=== PATIENT | female | born 1960 | race Caucasian/White ===

== ENCOUNTER → 2022-10-18 | Outpatient (CLI) | payer MEDICARE, OTHER ==
[~2022-10-18] MED LIST: ALBU90OI INH; AMOX500 PO; CLON1 PO; SERT100 PO
[2022-10-18 16:06] LABS: BASOPHILS ABSOLUTE AUTO 0.05 K/mm3 (0.00-0.23); BASOPHILS PERCENT AUTO 0 % (0-2); EOSINOPHILS ABSOLUTE AUTO 0.49 K/mm3 (0.00-0.68); EOSINOPHILS PERCENT AUTO 4 % (0-6); Hematocrit 39.1 % (33.0-51.0); IMMATURE GRAN ABSOLUTE AUTO 0.09 K/mm3 (0.00-0.10); IMMATURE GRAN PERCENT AUTO 1 % (0-1); LYMPHOCYTES ABSOLUTE AUTO 3.25 K/mm3 (0.84-5.20); LYMPHOCYTES PERCENT AUTO 29 % (21-46); MONOCYTES ABSOLUTE AUTO 0.48 K/mm3 (0.16-1.47); MONOCYTES PERCENT AUTO 4 % (4-13); Mean Corpuscular HGB 28.5 pg (26.0-34.0); Mean Corpuscular HGB Conc 33.2 g/dL (31.5-36.5); Mean Corpuscular Volume 86 fL (80-100); Mean Platelet Volume 9.4 fL (9.1-12.4); NEUTROPHILS ABSOLUTE AUTO 6.86 K/mm3 (1.96-9.15); NEUTROPHILS PERCENT AUTO 61 % (41-73); Platelet Count 298 K/mm3 (150-400); RDW Coefficient Variation 14.5 % (11.7-14.2); RDW Standard Deviation 44.9 fL (35.1-46.3); Red Blood Cell Count 4.56 M/mm3 (3.80-5.20); White Blood Cell Count 11.22 K/mm3 (4.00-11.30)
[2022-10-18 16:59] LABS: Free Thyroxine 0.8 ng/dL (0.70-1.60)
[2022-10-18 17:04] LABS: Albumin, Blood 3.8 g/dL (3.4-5.0); Albumin/Globulin Ratio 0.9 (0.8-1.8); Bilirubin, Total 0.2 mg/dL (0.1-1.0); Bun/Creatinine Ratio 14.9 (12.0-20.0); Calcium, Blood 8.7 mg/dL (8.5-10.1); Creatinine, Blood 0.87 mg/dL (0.40-1.00); Globulin, Blood 4.1 g/dL (2.2-4.0); Potassium, Blood 4.1 mmol/L (3.5-5.5); Thyroid Stimulating Hormone 2.55 uIU/mL (0.360-4.800); Total Protein, Blood 7.9 g/dL (6.4-8.2)
== END | disposition home or self-care (01) ==
LOC: LAB SHORT 15:58
PROVIDERS: Physician Assistant
DX: H53.2 Diplopia (principal); R47.81 Slurred speech; R53.83 Other fatigue
CPT/HCPCS: 80053; 84439; 84443; 85025

== ENCOUNTER → 2023-07-30 | Outpatient (CLI) | payer MEDICARE, OTHER | LOC: LAB 15:54 → LAB SHORT 15:54 | DX: R82.90 Unspecified abnormal findings in urine (principal) | CPT/HCPCS: 87086 ==

== ENCOUNTER → 2023-09-10 | Outpatient (CLI) | payer MEDICARE, OTHER | END | disposition home or self-care (01) | LOC: LAB 15:56 → LAB SHORT 15:56 | DX: R30.0 Dysuria (principal) | CPT/HCPCS: 87086 ==

== ENCOUNTER → 2023-11-20 | Outpatient (CLI) | payer MEDICARE, OTHER ==
[2023-11-20 20:08] LABS: Bacterial Vaginosis PCR Negative (NEGATIVE); Candida glabrata-krusei, PCR NOT DETECTED (NOT DETECT)
[2023-11-20 21:00] LABS: Candida Group, PCR DETECTED (NOT DETECT)
== END ==
LOC: LAB 14:08 → LAB SHORT 14:08
PROVIDERS: Nurse Practitioner Family
DX: B37.31 Acute candidiasis of vulva and vagina (principal)
CPT/HCPCS: 87481; 87661; 87801

== ENCOUNTER → 2024-01-08 | Outpatient (CLI) | payer MEDICARE, OTHER ==
[2024-01-08 15:54] LABS: Bacterial Vaginosis PCR Negative (NEGATIVE); Candida glabrata-krusei, PCR NOT DETECTED (NOT DETECT)
[2024-01-08 15:55] LABS: Candida Group, PCR DETECTED (NOT DETECT)
== END | disposition home or self-care (01) ==
LOC: LAB 11:02 → LAB SHORT 11:02
PROVIDERS: Nurse Practitioner Family
DX: R10.84 Generalized abdominal pain (principal)
CPT/HCPCS: 87481; 87661; 87801

== ENCOUNTER → 2024-02-18 | Outpatient (CLI) | payer MEDICARE, OTHER ==
[2024-02-19 09:02] LABS: Bacterial Vaginosis PCR Negative (NEGATIVE); Candida Group, PCR NOT DETECTED (NOT DETECT); Candida glabrata-krusei, PCR DETECTED (NOT DETECT)
== END ==
LOC: LAB 14:36 → LAB SHORT 14:36
PROVIDERS: Nurse Practitioner Family
DX: N89.8 Other specified noninflammatory disorders of vagina (principal)
CPT/HCPCS: 87481; 87661; 87801

== ENCOUNTER → 2024-05-11 | Outpatient (CLI) | payer MEDICARE, OTHER ==
[2024-05-13 17:38] LABS: Adenovirus F 40/41 Detected (NOT DETECT); Astrovirus Not Detected (NOT DETECT); Campylobacter Sp Not Detected (NOT DETECT); Cryptosporidium Not Detected (NOT DETECT); Cyclospora Cayetanensis Not Detected (NOT DETECT); E. Coli O157 Not Detected (NOT DETECT); Entamoeba Histolytica Not Detected (NOT DETECT); Enteroaggregative E. coli-EAEC Not Detected (NOT DETECT); Enteropathogenic E. coli-EPEC Not Detected (NOT DETECT); Enterotoxigenic E. coli-ETEC Not Detected (NOT DETECT); Giardia Lamblia Not Detected (NOT DETECT); Norovirus GI/GII Not Detected (NOT DETECT); Plesiomonas Shigelloides Not Detected (NOT DETECT); Rotavirus A Not Detected (NOT DETECT); Salmonella Sp Not Detected (NOT DETECT); Sapovirus Not Detected (NOT DETECT); Shiga Toxin-prod E. coli-STEC Not Detected (NOT DETECT); Shigella/Enteroin E. coli-EIEC Not Detected (NOT DETECT); Vibrio Cholerae Not Detected (NOT DETECT); Vibrio Sp Not Detected (NOT DETECT); Yersinia Enterocolitica Not Detected (NOT DETECT)
== END ==
LOC: LAB 14:48 → LAB SHORT 14:48
PROVIDERS: Internal Medicine Gastroenterology
DX: R19.7 Diarrhea, unspecified (principal)
CPT/HCPCS: 87507

== ENCOUNTER 2024-07-08 08:06 | Day surgery (SDC) | payer MEDICARE, OTHER ==
[~2024-07-08] VITALS: Ht 165.1 cm; Wt 81.8 kg
[2024-07-08] VITALS (20 sets, daily range): BP systolic 103–173; BP diastolic 61–93
[~2024-07-08 08:06] MED LIST changes: +ACYC400 PO; +ATOR40TA PO; +BASAGLAR K100 UNIT/1 SC; +GLIM2 PO; +JARDIANCE25 MG PO; +LOSA50 PO; +Lactated Ringer's 1,000 ML IV SCH; +NOVOLOG FL100 UNIT/2 SC; +SEROQUEL100 MG PO
[2024-07-08] MEDS ORDERED: ESCI10 PO (08:43)
[2024-07-08] MEDS ORDERED: propofoL 40 ML IV ONE (09:08)
--- NOTE | 2024-07-08 09:28 | NUR ---
07/08/24 0928 Xiomara Villatoro CONFIRMED AND REVIEWED H&P, MEDCICATIONS, ALLERGIES, MEDICAL HISTORY, RESPIRATORY HISTORY, VITAL SIGNS, 3-LEAD EKG, CONSENTS, AND PHYSICIAN ORDERS. PATIENT CONFIRMS NPO STATUS AND AGREES WITH SCHEDULED PROCEDURE. MONITOR INTACT WITH CONTINUOUS PULSE OXIMETRY, CAPNOGRAPHY, 3-LEAD EKG, INTERMITTENT BP. SUPPLEMENTAL O2 TO BE TITRATED THROUGHOUT PROCEDURE TO MAINTAIN O2 SATURATION ABOVE 90%. PATIENT DETERMINED TO BE ASA APPROPRIATE FOR PROPOFOL SEDATION PRIOR TO START OF PROCEDURE BY DR. LEYVA
[2024-07-08] MEDS ORDERED: Midazolam HCl 1MG / ML 2ML Vial ONE (09:31)
--- NOTE | 2024-07-08 10:26 | NUR ---
Patient up to Ambulate independently. Gait steady. Discharge instructions reviewed with patient. Patient verbalizes understanding. Copy given to patient to take home. Patient States Post-Procedure ride home has been arranged. Discharged via wheelchair to private car for ride home. PT TOLERATING PO. REPORTS READY TO GO HOME.
== END 2024-07-08 10:26 | disposition home or self-care (01) ==
LOC: ORSCMMR 08:06 → ORD 09:00 → ORSCMMR 09:00
PROVIDERS: Internal Medicine Gastroenterology
PROC: 0DBK8ZX Excision of Ascending Colon, Via Natural or Artificial Opening Endoscopic, Diagnostic (ICD-10-PCS; principal; 2024-07-08 09:00)
PROC: 0DBL8ZX Excision of Transverse Colon, Via Natural or Artificial Opening Endoscopic, Diagnostic (ICD-10-PCS; principal; 2024-07-08 09:00)
PROC: 0DBN8ZX Excision of Sigmoid Colon, Via Natural or Artificial Opening Endoscopic, Diagnostic (ICD-10-PCS; principal; 2024-07-08 09:00)
DX: R19.7 Diarrhea, unspecified (principal); D12.3 Benign neoplasm of transverse colon; D12.5 Benign neoplasm of sigmoid colon; E11.9 Type 2 diabetes mellitus without complications; F32.A Depression, unspecified; F41.9 Anxiety disorder, unspecified; I10 Essential (primary) hypertension; Z79.84 Long term (current) use of oral hypoglycemic drugs; Z79.4 Long term (current) use of insulin; Z79.899 Other long term (current) drug therapy; F17.210 Nicotine dependence, cigarettes, uncomplicated
CPT/HCPCS: 82947; 88305; J2250; J2704; J7120

== ENCOUNTER 2024-07-16 09:13 | Observation (INO) | payer MEDICARE, OTHER ==
[~2024-07-16] VITALS: Ht 165.1 cm; Wt 82.5 kg
[~2024-07-16 09:13] MED LIST changes: +ESCI10 PO; -Lactated Ringer's 1,000 ML IV SCH
[2024-07-16 09:53] LABS: BASOPHILS ABSOLUTE AUTO 0.06 K/mm3 (0.00-0.23); BASOPHILS PERCENT AUTO 1 % (0-2); EOSINOPHILS ABSOLUTE AUTO 0.49 K/mm3 (0.00-0.68); EOSINOPHILS PERCENT AUTO 5 % (0-6); Hematocrit 39.3 % (33.0-51.0); Hemoglobin 13.2 g/dL (11.5-16.0); IMMATURE GRAN ABSOLUTE AUTO 0.03 K/mm3 (0.00-0.10); IMMATURE GRAN PERCENT AUTO 0 % (0-1); LYMPHOCYTES ABSOLUTE AUTO 3.89 K/mm3 (0.84-5.20); LYMPHOCYTES PERCENT AUTO 41 % (21-46); MONOCYTES PERCENT AUTO 5 % (4-13); Mean Corpuscular HGB Conc 33.6 g/dL (31.5-36.5); Mean Corpuscular Volume 83 fL (80-100); Mean Platelet Volume 9.5 fL (9.1-12.4); NEUTROPHILS ABSOLUTE AUTO 4.58 K/mm3 (1.96-9.15); NEUTROPHILS PERCENT AUTO 48 % (41-73); Platelet Count 275 K/mm3 (150-400); RDW Coefficient Variation 12.7 % (11.7-14.2); RDW Standard Deviation 38.9 fL (35.1-46.3); Red Blood Cell Count 4.71 M/mm3 (3.80-5.20); White Blood Cell Count 9.55 K/mm3 (4.00-11.30)
[2024-07-16 10:20] LABS: Albumin, Blood 3.2 g/dL (3.4-5.0); Albumin/Globulin Ratio 0.9 (0.8-1.8); Bilirubin, Total 0.3 mg/dL (0.1-1.0); Bun/Creatinine Ratio 21.4 (12.0-20.0); Calcium, Blood 9.4 mg/dL (8.5-10.1); Creatinine, Blood 0.61 mg/dL (0.40-1.00); Globulin, Blood 3.6 g/dL (2.2-4.0); Potassium, Blood 4.2 mmol/L (3.5-5.5); Total Protein, Blood 6.8 g/dL (6.4-8.2)
[2024-07-16] MEDS ORDERED: QUETIAPINE FUM10011 PO (10:31)
[2024-07-16] MEDS ORDERED: ZOLOFT10013 PO (10:31)
[2024-07-16] MEDS ORDERED: DONEPEZIL HCL10 M1 PO (10:32)
[2024-07-16] MEDS ORDERED: VARENICLINE TART1 M2 PO (10:32)
[2024-07-16] MEDS ORDERED: HYDHCL25 (10:33)
[2024-07-16] MEDS ORDERED: TRAZ100 PO (10:34)
[2024-07-16] MEDS ORDERED: AMLODIPINE BESYL5 MG PO (10:34)
[2024-07-16] MEDS ORDERED: Clopidogrel Bisulfate 75 MG Tab PO ONE (11:25)
[2024-07-16] MEDS ORDERED: Aspirin 81 MG Chew PO ONE (11:25)
[2024-07-16] MEDS ORDERED: FLU VACC TS2024-25(6MOS UP)/PF 45 MCG/0.5 ML SYRINGE IM SCH (13:20)
[2024-07-16 14:01] LABS: CHOL/HDL RATIO 4.5; Cholesterol 200 mg/dL (50-200); HDL Cholesterol 44 mg/dL (>39); LDL/HDL RATIO 1.8; Low Density Lipoprotein Chol 81 mg/dL (0-110); Triglycerides 376 mg/dL (30-160); Very Low Density Lipoprot Chol 75 mg/dL (6-32)
[2024-07-16] MEDS ORDERED: VALA500 PO (15:18)
[2024-07-16] MEDS ORDERED: PRED20 PO (15:18)
[2024-07-16 15:39] VITALS: BP 150/84
[2024-07-17] MEDS ORDERED: Aspirin 81 MG Chew PO SCH (09:00)
[2024-07-17] MEDS ORDERED: Clopidogrel Bisulfate 75 MG Tab PO SCH (09:00)
[2024-07-17] MEDS ORDERED: Enoxaparin 40 MG/0.4 ML SYR SC SCH (09:00)
== END 2024-07-16 15:40 | disposition home health service (06) ==
LOC: ER 09:13 → MEDS 09:14
PROVIDERS: Emergency Medicine; ADMIT Hospitalist
DX: G51.0 Bell's palsy (principal); B00.1 Herpesviral vesicular dermatitis; E11.9 Type 2 diabetes mellitus without complications; I10 Essential (primary) hypertension; F17.210 Nicotine dependence, cigarettes, uncomplicated; Z79.4 Long term (current) use of insulin; Z79.899 Other long term (current) drug therapy; Z88.2 Allergy status to sulfonamides; Z88.8 Allergy status to other drugs, medicaments and biological substances; Z66 Do not resuscitate
CPT/HCPCS: 70450; 70496; 70498; 70551; 71045; 80053; 80061; 83036; 84484; 85025; 85730; 93005; 93010; 99285-25; A9270; G0378; Q9967

== ENCOUNTER → 2024-10-19 | Outpatient (CLI) | payer MEDICARE, OTHER ==
[~2024-10-19] MED LIST changes: +AMLODIPINE BESYL5 MG PO; +DONEPEZIL HCL10 M1 PO; +HYDHCL25; +PRED20 PO; +QUETIAPINE FUM10011 PO; +TRAZ100 PO; +VALA500 PO; +VARENICLINE TART1 M2 PO; +ZOLOFT10013 PO
[2024-10-19 15:31] LABS: Adenovirus F 40/41 Not Detected (NOT DETECT); Astrovirus Not Detected (NOT DETECT); Campylobacter Sp Not Detected (NOT DETECT); Cryptosporidium Not Detected (NOT DETECT); Cyclospora Cayetanensis Not Detected (NOT DETECT); E. Coli O157 Not Detected (NOT DETECT); Entamoeba Histolytica Not Detected (NOT DETECT); Enteroaggregative E. coli-EAEC Not Detected (NOT DETECT); Enteropathogenic E. coli-EPEC Not Detected (NOT DETECT); Enterotoxigenic E. coli-ETEC Not Detected (NOT DETECT); Giardia Lamblia Not Detected (NOT DETECT); Norovirus GI/GII Not Detected (NOT DETECT); Plesiomonas Shigelloides Not Detected (NOT DETECT); Rotavirus A Not Detected (NOT DETECT); Salmonella Sp Not Detected (NOT DETECT); Sapovirus Not Detected (NOT DETECT); Shiga Toxin-prod E. coli-STEC Not Detected (NOT DETECT); Shigella/Enteroin E. coli-EIEC Not Detected (NOT DETECT); Vibrio Cholerae Not Detected (NOT DETECT); Vibrio Sp Not Detected (NOT DETECT); Yersinia Enterocolitica Not Detected (NOT DETECT)
== END ==
LOC: LAB 13:29 → LAB SHORT 13:29
PROVIDERS: Nurse Practitioner Family
DX: K52.9 Noninfective gastroenteritis and colitis, unspecified (principal)
CPT/HCPCS: 87507